=== PATIENT | female | born 2000 | race Two or more races ===

== ENCOUNTER 2020-08-14 14:36 | Observation (INO) | payer MEDICAID | END 2020-08-14 15:50 | disposition home or self-care (01) | LOC: LDRP 14:36 | PROVIDERS: ADMIT Specialist; ATTEND Specialist | DX: O60.02 Preterm labor without delivery, second trimester (principal); Z3A.26 26 weeks gestation of pregnancy | CPT/HCPCS: 59025; 81002; G0378 ==

== ENCOUNTER 2020-09-20 09:37 | Observation (INO) | payer MEDICAID | END 2020-09-20 11:55 | disposition home or self-care (01) | LOC: LDRP 09:37 → UNDOADMOB 09:37 → UNDODISOB 11:55 | PROVIDERS: ADMIT Specialist; ATTEND Specialist | DX: O46.93 Antepartum hemorrhage, unspecified, third trimester (principal); Z3A.31 31 weeks gestation of pregnancy | CPT/HCPCS: 59025; 76815; 76817; 81002; G0378 ==

== ENCOUNTER 2021-09-21 14:55 | Observation (INO) | payer MEDICAID ==
[2021-09-21] MEDS ORDERED: PREN-96 PO (15:42)
== END 2021-09-21 15:56 | disposition home or self-care (01) ==
LOC: LDRP 14:55
PROVIDERS: ADMIT Obstetrics & Gynecology Obstetrics; ATTEND Obstetrics & Gynecology Obstetrics
DX: O26.892 Other specified pregnancy related conditions, second trimester (principal); R10.2 Pelvic and perineal pain; R10.30 Lower abdominal pain, unspecified; R30.9 Painful micturition, unspecified; R35.0 Frequency of micturition; R51.9 Headache, unspecified; R42 Dizziness and giddiness; R11.0 Nausea; O99.891 Other specified diseases and conditions complicating pregnancy; M54.50 Low back pain, unspecified; Z3A.25 25 weeks gestation of pregnancy; Z87.440 Personal history of urinary (tract) infections; Z87.59 Personal history of other complications of pregnancy, childbirth and the puerperium
CPT/HCPCS: 59025; 81002; 94760; G0378; G0379

== ENCOUNTER 2021-10-20 16:29 | Observation (INO) | payer MEDICAID ==
[~2021-10-20] VITALS: Ht 33 cm; Wt 0.5 kg
[~2021-10-20 16:29] MED LIST: PREN-96 PO
[2021-10-20] MEDS ORDERED: LACTATED RINGER'S 1,000 ML IV ONE (17:15)
[2021-10-20] MEDS ORDERED: ceFAZolin 2 GM in D5W 5% 100 ML IV ONE (17:15)
[2021-10-20] MEDS ORDERED: ceFAZolin 1GM VL ONE (17:36)
[2021-10-20] MEDS ORDERED: D5W 5% 100 ML IV ONE (17:37)
[2021-10-20 17:42] LABS: Urine Bacteria FEW /hpf (None Seen); Urine Blood Negative /uL (Negative); Urine Mucus FEW (None Seen); Urine Specific Gravity 1.033 (1.001-1.035); Urine WBC 109 /hpf (0 - 5)
[2021-10-20] MEDS ORDERED: TERBUTALINE SULFATE 1 MG/ML 1ML VIAL SC ONE (20:00)
== END 2021-10-20 21:48 | disposition home or self-care (01) ==
LOC: LDRP 16:29
PROVIDERS: ADMIT Obstetrics & Gynecology; ATTEND Obstetrics & Gynecology
DX: O26.893 Other specified pregnancy related conditions, third trimester (principal); R10.30 Lower abdominal pain, unspecified; O99.891 Other specified diseases and conditions complicating pregnancy; M54.9 Dorsalgia, unspecified; O46.93 Antepartum hemorrhage, unspecified, third trimester; O21.2 Late vomiting of pregnancy; Z3A.29 29 weeks gestation of pregnancy
CPT/HCPCS: 59025; 81001; 81002; 87086; 87088; 94760; 96361; 96365; G0378; G0379; J0690; J7060; 96360

== ENCOUNTER 2021-12-09 08:19 | Observation (INO) | payer MEDICAID | END 2021-12-09 09:47 | disposition home or self-care (01) | LOC: LDRP 08:19 | PROVIDERS: ADMIT Obstetrics & Gynecology; ATTEND Obstetrics & Gynecology | DX: O36.5930 Maternal care for other known or suspected poor fetal growth, third trimester, not applicable or unspecified (principal); Z3A.36 36 weeks gestation of pregnancy | CPT/HCPCS: 59025; 76818; 81002; 94760; G0378 ==

== ENCOUNTER 2021-12-16 08:29 | Observation (INO) | payer MEDICAID ==
[~2021-12-16] VITALS: Ht 154.9 cm; Wt 68.0 kg
[2021-12-16] MEDS ORDERED: FERR1TAB36 PO (17:17)
== END 2021-12-16 18:03 | disposition home or self-care (01) ==
LOC: LDRP 16:57
PROVIDERS: ADMIT Obstetrics & Gynecology; ATTEND Obstetrics & Gynecology
DX: O36.5930 Maternal care for other known or suspected poor fetal growth, third trimester, not applicable or unspecified (principal); O62.9 Abnormality of forces of labor, unspecified; Z3A.37 37 weeks gestation of pregnancy
CPT/HCPCS: 59025; 76818; 81002; 94760; G0378

== ENCOUNTER 2021-12-23 10:26 | Observation (INO) | payer MEDICAID ==
[~2021-12-23 10:26] MED LIST changes: +FERR1TAB36 PO
== END 2021-12-23 16:23 | disposition home or self-care (01) ==
LOC: LDRP 13:00
PROVIDERS: ADMIT Obstetrics & Gynecology; ATTEND Obstetrics & Gynecology
DX: O36.5930 Maternal care for other known or suspected poor fetal growth, third trimester, not applicable or unspecified (principal); Z3A.38 38 weeks gestation of pregnancy
CPT/HCPCS: 59025; 76818; 81002; 94760; G0378

== ENCOUNTER 2022-07-25 16:43 | Emergency (ER) | payer MEDICAID ==
[~2022-07-25] VITALS: Ht 154.9 cm; Wt 62.5 kg
[2022-07-25 17:31] LABS: Urine Bacteria NONE SEEN /hpf (None Seen); Urine Blood Negative /uL (Negative); Urine Mucus FEW (None Seen); Urine Specific Gravity 1.035 (1.001-1.035); Urine WBC 32 /hpf (0 - 5)
[2022-07-25 18:49] LABS: Basophils # (auto) 0 10 ^3/uL (0-0.2); Eosinophils # (auto) 0 10 ^3/uL (0-0.8); Monocytes # (auto) 0.4 10 ^3/uL (0-1.3); Nucleated Red Blood Cells % 0.1 %; White Blood Cell 4.1 10^3/uL (4.4-10.8)
[2022-07-25 18:51] LABS: Basophils % (auto) 0.8 % (0.0-2.0); Eosinophils % (auto) 0.6 % (0.0-7.0); Hematocrit 40.3 % (36.0-46.0); Hemoglobin 12.9 g/dL (12.2-16.2); Lymphocytes # (auto) 1.2 10 ^3/uL (0.4-5.4); Lymphocytes % (auto) 28.2 % (10.0-50.0); Mean Corpuscular Volume 84.2 fL (80.0-100.0); Monocytes % (auto) 9.1 % (0.0-12.0); Neutrophils # (auto) 2.5 10 ^3/uL (1.6-8.6); Neutrophils % (auto) 61.3 % (37.0-80.0); Red Blood Cells 4.78 10^6/uL (4.0-5.20); Red Cell Distribution Width 15.4 % (11.8-14.3)
[2022-07-25 19:03] LABS: Albumin 3.7 g/dL (3.4-5.0); Calcium 8.3 mg/dL (8.5-10.1); Potassium 3.3 mmol/L (3.5-5.1)
[2022-07-25 19:08] LABS: BUN/Creatinine Ratio 20.8; Bilirubin, Total 0.2 mg/dL (0.2-1.0); Total Protein 7.8 g/dL (6.4-8.2)
[2022-07-25] MEDS ORDERED: IBUP200C14 PO (22:07)
[2022-07-25] MEDS ORDERED: NITR-87 PO (22:07)
[2022-07-25] MEDS ORDERED: NITROFURANTOIN 100 mg CAP PO ONE (22:15)
[2022-07-25] MEDS ORDERED: IBUPROFEN 800 MG TAB PO ONE (22:15)
[2022-07-25 22:25] VITALS: BP 107/65
== END 2022-07-25 22:31 | disposition home or self-care (01) ==
LOC: ER 16:46
DX: N39.0 Urinary tract infection, site not specified (principal); N83.201 Unspecified ovarian cyst, right side; Z79.899 Other long term (current) drug therapy
CPT/HCPCS: 36415; 74176; 80053; 81001; 81025; 83690; 84702; 85025

== ENCOUNTER 2022-10-22 19:13 | Emergency (ER) | payer MEDICAID ==
[~2022-10-22] VITALS: Ht 154.9 cm; Wt 69.5 kg
[~2022-10-22 19:13] MED LIST changes: +IBUP200C14 PO; +NITR-87 PO
[2022-10-22 19:48] VITALS: BP 111/67
== END 2022-10-22 21:11 | disposition left against medical advice (07) ==
LOC: ER 19:13
DX: O20.8 Other hemorrhage in early pregnancy (principal); O21.8 Other vomiting complicating pregnancy; Z3A.00 Weeks of gestation of pregnancy not specified; Z53.21 Procedure and treatment not carried out due to patient leaving prior to being seen by health care provider